=== PATIENT | female | born 1980 | race Caucasian/White ===

== ENCOUNTER 2018-09-22 08:20 | Emergency (ER) ==
[2018-09-22 08:29] VITALS: BP 135/87; BMI 29.0
[2018-09-22 09:32] LABS: URINE PREGNANCY TEST NEGATIVE (NEGATIVE)
[2018-09-22] MEDS ORDERED: TYLENOL PO STA (10:20)
--- NOTE | 2018-09-22 10:27 | CT ---
EXAM: CT Head HISTORY: Headache, sinus pressure COMPARISON: None TECHNIQUE: CT head performed without contrast FINDINGS: There is no mass effect, midline shift, or intracranial hemmorhage. [place] white differenti ation is preserved. There is no extra-axial collection. The ventricles, sulci, and basal cisterns a re patent and symmetric. There is no depressed calvarial fracture. The mastoid air cells are clear. Mild mucosal thickening paranasal sinuses, mostly in the ethmoid air cells. Nasal mucosal thickenin g/opacification, greater on the right. IMPRESSION: 1. No acute intracranial abnormality. 2. Sinusitis
[2018-09-22] MEDS ORDERED: LIDOCAINE HCL 1% SDV IM STA (10:38)
[2018-09-22] MEDS ORDERED: ROCEPHIN IM STA (10:38)
--- NOTE | 2018-09-22 10:41 | ED.PDOC ---
General ED Provider: Dr. KARIS BLEVINS Chief Complaint: Headache Stated Complaint: headache Time Seen by Physician: 08:30 ( seen with nurse at all times ) Mode of Arrival: Walk-In Information Source: Patient Exam Limitations: No limitations Primary Care Provider: ARLETH PUENTE Nursing and Triage Documentation Reviewed and Agree: Yes Does patient meet sepsis criteria?: No System Inflammatory Response Syndrome: Not Applicable Sepsis Protocol: For patient's 13 years and over: Temp is 96.8 and below OR 101 and greater Pulse >90 BPM Resp >20/minute Acutely Altered Mental Status Are patient's symptoms suggestive of a new infection, such as: -Pneumonia -Skin, Soft Tissue -Endocarditis -UTI -Bone, Joint Infection -Implantable Device -Acute Abdominal Infection -Wound Infection -Meningitis -Blood Stream Catheter Infection -Unknown Review of Systems - Review Of Systems Constitutional: Reports: Fever, Malaise, Loss of appetite Eyes: Reports: No symptoms Ears, Nose, Mouth, Throat: Reports: No symptoms Respiratory: Reports: No symptoms Cardiac: Reports: No symptoms GI: Reports: No symptoms : Reports: No symptoms Musculoskeletal: Reports: No symptoms Skin: Reports: No symptoms Neurological: Reports: Headache Endocrine: Reports: No symptoms Hematologic/Lymphatic: Reports: No symptoms All Other Systems: Reviewed and Negative Past Medical History - Past Medical History Previously Healthy: Yes Endocrine: Reports: None Cardiovascular: Reports: None Respiratory: Reports: None Hematological: Reports: None Gastrointestinal: Reports: None Genitourinary: Reports: None Neuro/Psych: Reports: None Musculoskeletal: Reports: None Cancer: Reports: None Last Menstrual Period: last week - Surgical History General Surgical History: Reports: None - Family History Family History: Reports: None - Social History Smoking Status: Former smoker Hx Substance Use: No Alcohol Screening: Occasionally Physical Exam - Physical Exam Appearance: Ill-appearing Ill-appearing: Mild Eyes: BRYN, EOMI, Conjunctiva clear ENT: Erythema Respiratory: Airway patent, Breath sounds clear, Breath sounds equal, Respirations nonlabored Cardiovascular: RRR, Pulses normal, No rub, No murmur GI/: Soft, Nontender, No masses, Bowel sounds normal, No Organomegaly Musculoskeletal: Normal strength, ROM intact, No edema, No calf tenderness Skin: Warm, Dry, Normal color Neurological: Sensation intact, Motor intact, Reflexes intact, Cranial nerves intact, Alert, Oriented Psychiatric: Affect appropriate, Mood appropriate - NIH Stroke Scale 1a. Level of Consciousness: 0=Alert and keenly responsive 1b. Level of Consciousness Questions: 0=Answers correctly to two questions 1c. Level of Consciousness Commands: 0=Performs two tasks correctly 2. Best Gaze: 0=Normal 3. Visual: 0=No visual loss 4. Facial Palsy: 0=Normal 5a. Motor Left Arm: 0=No drift,arm holds 90 degrees for 10 sec., leg 30 degrees for 5 sec. 5b. Motor Right Arm: 0=No drift,arm holds 90 degrees for 10 sec., leg 30 degrees for 5 sec. 6a. Motor Left Le=No drift,arm holds 90 degrees for 10 sec., leg 30 degrees for 5 sec. 6b. Motor Right Le=No drift,arm holds 90 degrees for 10 sec., leg 30 degrees for 5 sec. 7. Limb Ataxia: 0=Absent 8. Sensory: 0=Normal 10. Dysarthria: 0=Normal Stroke Scale Total: 0 Interpretation - Radiology Interpretation Radiology Interpretation By: Radiologist Radiology Results: Positive (sinusitis) Critical Care Note - Critical Care Note Total Time (mins): 0 Course - Course Hematology/Chemistry: 09/22/18 10:30 09/22/18 10:30 Orders, Labs, Meds: Lab Review 09/22/18 09/22/18 09/22/18 09:25 09:25 10:20 WBC RBC Hgb Hct MCV MCH MCHC RDW Coeff of Kyle Plt Count Immature Gran % (Auto) Neut % (Auto) Lymph % (Auto) [place] % (Auto) Eos % (Auto) Baso % (Auto) Immature Gran # (Auto) Neut # (Auto) Lymph # (Auto) [place] # (Auto) Eos # (Auto) Baso # (Auto) Sodium Potassium Chloride Carbon Dioxide Anion Gap BUN Creatinine Estimated GFR (MDRD) BUN/Creatinine Ratio Glucose Lactic Acid Calcium Total Bilirubin AST ALT Alkaline Phosphatase Total Protein Albumin Globulin Albumin/Globulin Ratio Procalcitonin Urine Color Yellow Urine Clarity Clear Urine pH 7.0 Ur Specific [place] 1.015 Urine Protein Trace Urine Glucose (UA) Negative Urine Ketones Negative Urine Blood Negative Urine Nitrite Negative Urine Bilirubin Negative Urine Urobilinogen 0.2 Ur Leukocyte Esterase Negative Ur Squamous Epith Cells 0-2 Urine Mucus Trace Urine Test Negative Influ A Molecular Assay Negative by naat Influ B Molecular Assay Negative by naat 09/22/18 09/22/18 09/22/18 10:30 10:30 10:30 WBC 13.84 H RBC 4.61 Hgb 13.7 Hct 39.2 MCV 85.0 MCH 29.7 MCHC 34.9 RDW Coeff of Kyle 12.6 Plt Count 213 Immature Gran % (Auto) 0.5 Neut % (Auto) 85.7 Lymph % (Auto) 7.0 L [place] % (Auto) 6.6 Eos % (Auto) 0.0 Baso % (Auto) 0.2 Immature Gran # (Auto) 0.1 Neut # (Auto) 11.9 H Lymph # (Auto) 1.0 [place] # (Auto) 0.9 Eos # (Auto) 0.0 Baso # (Auto) 0.0 Sodium 133.5 L Potassium 3.60 Chloride 99.5 Carbon Dioxide 22.7 Anion Gap 14.90 BUN 6.2 L Creatinine 0.47 L Estimated GFR (MDRD) 150.00 BUN/Creatinine Ratio 13.19 Glucose 104.1 Lactic Acid Calcium 8.96 Total Bilirubin 0.74 AST 23.0 ALT 21.4 Alkaline Phosphatase 79.4 Total Protein 7.62 Albumin 4.64 Globulin 2.98 Albumin/Globulin Ratio 1.55 Procalcitonin < 0.05 Urine Color Urine Clarity Urine pH Ur Specific [place] Urine Protein Urine Glucose (UA) Urine Ketones Urine Blood Urine Nitrite Urine Bilirubin Urine Urobilinogen Ur Leukocyte Esterase Ur Squamous Epith Cells Urine Mucus Urine Test Influ A Molecular Assay Influ B Molecular Assay 09/22/18 10:30 WBC RBC Hgb Hct MCV MCH MCHC RDW Coeff of Kyle Plt Count Immature Gran % (Auto) Neut % (Auto) Lymph % (Auto) [place] % (Auto) Eos % (Auto) Baso % (Auto) Immature Gran # (Auto) Neut # (Auto) Lymph # (Auto) [place] # (Auto) Eos # (Auto) Baso # (Auto) Sodium Potassium Chloride Carbon Dioxide Anion Gap BUN Creatinine Estimated GFR (MDRD) BUN/Creatinine Ratio Glucose Lactic Acid 0.82 Calcium Total Bilirubin AST ALT Alkaline Phosphatase Total Protein Albumin Globulin Albumin/Globulin Ratio Procalcitonin Urine Color Urine Clarity Urine pH Ur Specific [place] Urine Protein Urine Glucose (UA) Urine Ketones Urine Blood Urine Nitrite Urine Bilirubin Urine Urobilinogen Ur Leukocyte Esterase Ur Squamous Epith Cells Urine Mucus Urine Test Influ A Molecular Assay Influ B Molecular Assay Orders Category Date Time Status BLOOD CULTURE Stat LAB 09/22/18 10:30 Received CBC W/ AUTO DIFF Stat LAB 09/22/18 10:30 Completed COMPREHENSIVE METABOLIC PANEL Stat LAB 09/22/18 10:30 Completed FLU A/B MOLECULAR Stat LAB 09/22/18 10:20 Completed LACTIC ACID Stat LAB 09/22/18 10:30 Completed MOLECULAR GROUP A STREP Stat LAB 09/22/18 10:20 Completed PROCALCITONIN Stat LAB 09/22/18 10:30 Completed URINALYSIS C & S IF INDICATED Stat LAB 09/22/18 09:25 Completed URINE Stat LAB 09/22/18 09:25 Completed Acetaminophen [Tylenol] MEDS 09/22/18 10:20 Discontinued 650 mg PO ONCE STA Ceftriaxone Sodium [Rocephin] MEDS 09/22/18 10:38 Discontinued 1 gm IM ONCE STA Lidocaine HCl/Pf [Lidocaine HCl 1% Sdv] MEDS 09/22/18 10:38 Discontinued 2.1 ml IM ONCE STA CHEST, 2 VIEWS PA & LAT Stat RADS 09/22/18 10:[address] HEAD W/O CONTRAST Stat RADS 09/22/18 08:35 Completed Medications Discontinued Medications Generic Name Dose Route Start Last Admin Trade Name Freq PRN Reason Stop Dose Admin Acetaminophen 650 mg 09/22/18 10:20 09/22/18 10:32 Tylenol PO 09/22/18 10:21 650 mg ONCE STA Administration Ceftriaxone Sodium 1 gm 09/22/18 10:38 09/22/18 10:46 Rocephin IM 09/22/18 10:39 1 gm ONCE STA Administration Lidocaine HCl 2.1 ml 09/22/18 10:38 09/22/18 10:46 Lidocaine Hcl 1% Sdv IM 09/22/18 10:39 2.1 ml ONCE STA Administration Vital Signs: Temp Pulse Resp BP Pulse Ox 09/22/18 10:16 101.9 F H 09/22/18 08:21 98.4 F 114 H 20 135/87 96 Departure - Departure Time of Disposition: 11:48 Disposition: HOME SELF-CARE Discharge Problem: Headache, Strep pharyngitis Sinusitis Qualifiers: Sinusitis location: unspecified location Chronicity: acute Recurrence: non- recurrent Qualified Code(s): J01.90 - Acute sinusitis, unspecified Instructions: Sinusitis (ED), Strep Throat (DC) Condition: Good Pt referred to PMD for follow-up: Yes IPMP verified?: No Additional Instructions: Please call your Family Physician as soon as possible to schedule a follow-up appointment. Prescriptions: Amoxicillin 500 mg PO Q6HR #40 tablet Allergies/Adverse Reactions: Allergies clarithromycin Adverse Reaction (Verified 09/22/18 08:30) codeine Adverse Reaction (Verified 09/22/18 08:30) Home Medications: Ambulatory Orders Ibuprofen 800 mg PO TID #30 tablet 12/29/14 Amoxicillin 500 mg PO Q6HR #40 tablet 09/22/18 Disposition Discussed With: Patient, Family
--- NOTE | 2018-09-22 10:54 | DI ---
EXAM: Chest two views HISTORY: Cough COMPARISON: None TECHNIQUE: Two views of the chest were performed FINDINGS: The lungs are clear. There is no pleural effusion or pneumothorax. The heart is normal i n size. The mediastinal contour is normal. There are no acute abnormalities of the bones. IMPRESSION: No acute cardiopulmonary process.
[2018-09-22 12:08] VITALS: TEMP 99.1
== END 2018-09-22 12:00 | disposition home or self-care (01) ==
LOC: ED 08:20
DX: J01.90 Acute sinusitis, unspecified (principal); J02.0 Streptococcal pharyngitis; R51 Headache
CPT/HCPCS: 36415; 80053; 81001; 81025; 83605; 84145; 85025; 87040; 87502; 87651; 96372; 99283